=== PATIENT | male | born 2000 | race Caucasian/White ===

== ENCOUNTER 2023-08-18 19:25 | Emergency (ER) | payer MEDICAID ==
[~2023-08-18] VITALS: Ht 188 cm; Wt 65.8 kg
[2023-08-18 20:00] VITALS: BP 109/66; PULSE 112; RESP 19; TEMP 98; O2SAT 98
[2023-08-18] MEDS ORDERED: LORazepam 1 MG TAB PO ONE (20:25)
[2023-08-18] MEDS ORDERED: CRUSHER, PILL MC ONE (21:28)
[2023-08-18 21:36] LABS: BASOPHILS # (AUTO) 0.1 K/uL (0.00-0.22); BASOPHILS % (AUTO) 0.7 % (0.0-2.0); EOSINOPHILS # (AUTO) 0.1 K/uL (0-0.4); EOSINOPHILS % (AUTO) 0.6 % (0.0-4.0); HEMATOCRIT 46.7 % (36-52); HEMOGLOBIN 16.1 g/dL (12.0-18.0); LYMPHOCYTES # (AUTO) 1.4 K/uL (2.0-11.5); LYMPHOCYTES % (AUTO) 15.3 % (20.5-51.1); MEAN CORPUSCULAR HEMOGLOBIN 29 pg (27-31); MEAN CORPUSCULAR HGB CONC 34 g/dL (33-37); MEAN CORPUSCULAR VOLUME 85.3 fL (80-94); MONOCYTES # (AUTO) 0.7 K/uL (0.8-1.0); MONOCYTES % (AUTO) 7.7 % (1.7-9.3); NEUTROPHILS # (AUTO) 6.9 K/uL (1.8-7.7); NEUTROPHILS % (AUTO) 75.7 % (42.2-75.2); PLATELET COUNT (AUTO) 345 K/uL (140-450); RED BLOOD CELL COUNT(AUTO) 5.48 MIL/uL (4.20-6.10); RED CELL DISTRIBUTION WIDTH 13.8 % (11.6-13.7); WHITE BLOOD COUNT (AUTO) 9.1 K/uL (4.5-11.0)
[2023-08-18] MEDS ORDERED: PROM118S5 PO (21:58)
[2023-08-18] MEDS ORDERED: HYDR25CA1 PO (21:58)
[2023-08-18 22:01] LABS: CALCIUM 10.2 mg/dL (8.5-10.1)
[2023-08-18 22:02] LABS: ALANINE AMINOTRANSFERASE 5 U/L (12-78); ALBUMIN 4.5 g/dL (3.4-5.0); ALKALINE PHOSPHATASE 99 U/L (50-136); ANION GAP 19.1 (8-16); ASPARTATE AMINOTRANSFERASE 16 U/L (15-37); CARBON DIOXIDE 23.8 mmol/L (21-32); CHLORIDE 96 mmol/L (98-107); CREATININE 1.1 mg/dL (0.6-1.3); GFR ARICAN-AMERICAN 110 mL/min (>90); GFR NON ARICAN-AMERICAN 91 mL/min (>90); GLUCOSE 81 mg/dL (74-106); POTASSIUM 3.9 mmol/L (3.5-5.1); SODIUM SERUM 135 mmol/L (136-145); TOTAL PROTEIN, SERUM 10.8 g/dL (6.4-8.2); UREA NITROGEN, BLOOD 18 mg/dL (7-18)
[2023-08-18 22:35] VITALS: BP 112/74; PULSE 89; RESP 18; TEMP 98; O2SAT 95
== END 2023-08-18 22:35 | disposition home or self-care (01) ==
LOC: MED 19:25
DX: R06.02 Shortness of breath (principal); F41.9 Anxiety disorder, unspecified; R05.9 Cough, unspecified; F32.9 Major depressive disorder, single episode, unspecified; F17.210 Nicotine dependence, cigarettes, uncomplicated; F12.90 Cannabis use, unspecified, uncomplicated; Z71.6 Tobacco abuse counseling; Z79.899 Other long term (current) drug therapy
CPT/HCPCS: 36415; 71045; 80053; 84484; 85025; 85379; 93005; 99285